=== PATIENT | male | born 1990 | race Two or more races ===

== ENCOUNTER 2022-02-04 02:43 | Emergency (ER) | payer OTHER ==
[~2022-02-04] VITALS: Ht 185.4 cm; Wt 81.6 kg
--- NOTE | 2022-02-04 02:50 | NUR ---
BIB [employer] FOR OTB, R/O R 5TH FINGER FRACTURE.VSS.PT AXO4.
--- NOTE | 2022-02-04 02:58 | NUR ---
DOCTOR MACARIO AT PT BEDSIDE FOR EVAL
--- NOTE | 2022-02-04 03:07 | NUR ---
X-RAY TECH AT BEDSIDE
--- NOTE | 2022-02-04 03:52 | NUR ---
COVID ANTIGEN COLLECTED AND SENT TO LAB
--- NOTE | 2022-02-04 04:07 | NUR ---
SPLINT APPLIED ON RIGHT 5TH DIGIT
--- NOTE | 2022-02-04 04:12 | NUR ---
Patient discharged with police in stable condition. Written and verbal after care instructions given. Patient verbalizes understanding of instruction. PT LEFT WITH SPLINT ON RIGHT 5TH DIGIT. VSS.
[2022-02-04 04:15] VITALS: BP 124/70
== END 2022-02-04 04:17 ==
LOC: ER 02:43
DX: S62.636A Displaced fracture of distal phalanx of right little finger, initial encounter for closed fracture (principal); W22.01XA Walked into wall, initial encounter; Y92.89 Other specified places as the place of occurrence of the external cause; Z20.822 Contact with and (suspected) exposure to COVID-19; Z88.2 Allergy status to sulfonamides
CPT/HCPCS: 99284; 87426; 73130; 29130; C9803